=== PATIENT | female | born 1975 ===

== ENCOUNTER 2022-04-26 07:18 | Emergency (ER) | payer SELFPAY ==
[2022-04-26 07:27] VITALS: BP 135/95
--- NOTE | 2022-04-27 13:20 | Electrocardiograph Report ---
[facility] Test Date: 2022-04-26 Test Time: 07:44:13 Pat Name: HARVEY RODRÍGUEZ Department: Room: Gender: F Specialist Field Engineer: QUINTEN : 1975 Requested By: ED DOC Order Number: [id number] Reading MD: Mami Villa Measurements Intervals [place] Rate: 82 P: 67 OR: 167 QRS: 46 QRSD: 81 T: 36 QT: 369 QTc: 432 Interpretive Statements Sinus rhythm No previous ECG available for comparison Electronically Signed On 04-27-2022 13:19:43 EDT by Mami Villa
== END 2022-04-26 13:51 | disposition left against medical advice (07) ==
LOC: ED 07:18
DX: R07.9 Chest pain, unspecified (principal); R00.2 Palpitations; Z53.21 Procedure and treatment not carried out due to patient leaving prior to being seen by health care provider
CPT/HCPCS: 93005